=== PATIENT | female | born 1995 | race Caucasian/White ===

== ENCOUNTER 2018-08-12 02:10 | Emergency (ER) | payer SELFPAY, OTHER | END 2018-08-12 02:35 | disposition home or self-care (01) | LOC: E/R 02:10 | DX: F15.10 Other stimulant abuse, uncomplicated (principal); R40.2142 Coma scale, eyes open, spontaneous, at arrival to emergency department; R40.2252 Coma scale, best verbal response, oriented, at arrival to emergency department; R40.2362 Coma scale, best motor response, obeys commands, at arrival to emergency department | CPT/HCPCS: 99282 ==